=== PATIENT | female | born 1970 | race African-American/Black ===

== ENCOUNTER 2017-05-16 20:22 | Emergency (ER) | payer MEDICAID ==
[~2017-05-16] VITALS: Ht 162.6 cm; Wt 69.0 kg
[~2017-05-16 20:22] MED LIST: NORCO; PENICILLIN; TYLENOL
[2017-05-16] MEDS ORDERED: HYDROCODONE/ACETAMINOPHEN 5/325MG TABLET PO ONE (22:30)
[2017-05-16 22:40] VITALS: BP 147/86
== END 2017-05-16 23:00 | disposition home or self-care (01) ==
LOC: ER 21:36
DX: K02.9 Dental caries, unspecified (principal); K04.7 Periapical abscess without sinus; R03.0 Elevated blood-pressure reading, without diagnosis of hypertension; F17.210 Nicotine dependence, cigarettes, uncomplicated
CPT/HCPCS: 81025; 99283